=== PATIENT | male | born 1965 | race Hispanic/Latino ===

== ENCOUNTER 2019-09-04 09:43 | Emergency (ER) | payer OTHER, SELFPAY ==
[2019-09-04 10:20] VITALS: BP 139/72; PULSE 88; RESP 16; TEMP 37.3; O2SAT 99
--- NOTE | 2019-09-04 10:52 | ED.URI ---
HPI - URI/Sore Throat General Chief Complaint: Upper Respiratory Infection Stated Complaint: upper respiratiory infection Time Seen by Provider: 09/04/19 10:43 Source: patient and RN notes reviewed Mode of arrival: ambulatory Limitations: no limitations History of Present Illness HPI Narrative: Patient presents today complaining of rhinorrhea, throat itching, and bilateral eye itching and watery drainage that started 3 days ago after working outside. For the first 2 days of symptoms, patient was taking a daily antihistamine, likely Zyrtec, and has used some redeye eyedrops. Reports symptoms have improved and he is feeling much better. He was sent to urgent care today for evaluation, by his employer. He is also been taking Tylenol and drinking hot tea. MD elicited complaint: rhinorrhea and other (Itchy throat and eyes) Related Data Home Medications Medication Instructions Recorded Confirmed No Home Medications 09/04/19 09/04/19 Allergies Allergy/AdvReac Type Severity Reaction Status Date / Time No Known Allergies Allergy Verified 09/04/19 10:20 Review of Systems Review of Systems: Narrative: CONSTITUTIONAL: Denies body aches, fever, chills, or sweats. EYES: Denies visual changes, redness, or discharge. Eye itchiness and watering ENT: Denies congestion, sore throat, or otalgia.+ Rhinorrhea, scratchy throat CARDIOVASCULAR: Denies chest pain, palpitations, or edema. RESPIRATORY: Denies cough or dyspnea. GASTROINTESTINAL: Denies abdominal pain, nausea, vomiting, or diarrhea. GENITOURINARY: Denies dysuria or hematuria. SKIN: Denies rash, itching, or wounds. MUSCULOSKELETAL: Denies back pain, joint pain, or myalgia. NEUROLOGIC: Denies headache, numbness, tingling, or weakness. PSYCH: Denies depression or anxiety. PMFSH Comments At time of signature, I have reviewed and agree with nursing past medical, surgical, social and family history unless otherwise noted. Please see nursing chart for further information. There is no relevant family history pertinent to the presenting complaint Exam Narrative: Exam Narrative: GENERAL: Well-appearing, well-nourished, and in no acute distress. HEAD: Normocephalic, atraumatic. EYES: EOMI. No redness or drainage. Conjunctivae normal. PERRL. ENT: Mucous membranes pink and moist. Nares mildly congested. No rhinorrhea. TMs normal bilaterally. Throat normal with moderate amount of white postnasal drainage in the posterior oropharynx. Uvula midline. NECK: Normal AROM. Supple. No lymphadenopathy. CHEST: No respiratory distress. Clear to auscultation. HEART: Regular rate and rhythm. No murmur appreciated. Normal peripheral pulses. EXTREMITIES: Normal range of motion. No edema. SKIN: Warm, dry, no rash. Capillary refill normal. Normal skin turgor. NEURO: No focal deficits. Alert and oriented x3. Gait steady. PSYCH: Normal affect. No signs of depression or anxiety. Course Vital Signs Vital signs: Vital Signs Temperature 99.1 F 09/04/19 10:20 Pulse Rate 88 09/04/19 10:20 Respiratory Rate 16 09/04/19 10:20 Blood Pressure 139/72 09/04/19 10:20 Pulse Oximetry 99 09/04/19 10:20 Temperature 99.1 F 09/04/19 10:20 Pulse Rate 88 09/04/19 10:20 Respiratory Rate 16 09/04/19 10:20 Blood Pressure 139/72 09/04/19 10:20 Pulse Oximetry 99 09/04/19 10:20 Reviewed. Pt has been instructed to follow up with his PCP regarding his elevated blood pressure today. MDM - URI/Sore Throat Differential Diagnosis Differential diagnosis: Likely upper respiratory infection, sinusitis, viral infection and other (Allergic rhinitis, seasonal allergies) Critical Care Time Critical Care Time Critical Care Time: No Discharge Plan Discharge Clinical Impression: Seasonal allergies Patient Disposition: Home, Self-Care Condition: Stable Instructions: Allergies (ED) Additional Instructions: Joana s?ntomas probablemente se deban a alergias estacionales en el m
== END 2019-09-04 10:57 | disposition home or self-care (01) ==
PROVIDERS: Emergency Provider Nurse Practitioner
DX: J30.2 Other seasonal allergic rhinitis (principal)
CPT/HCPCS: 99201; G0463

== ENCOUNTER 2021-02-25 15:15 | Emergency (ER) | payer OTHER, SELFPAY ==
[2021-02-25 15:32] VITALS: BP 147/73; PULSE 91; RESP 16; TEMP 36.9; O2SAT 99
--- NOTE | 2021-02-25 15:56 | ED.URI ---
HPI - URI/Sore Throat General Chief Complaint: Upper Respiratory Infection Stated Complaint: CONGESTION Time Seen by Provider: 02/25/21 15:55 Source: patient and RN notes reviewed Mode of arrival: ambulatory Limitations: no limitations History of Present Illness HPI Narrative: 55-year-old male presents with concern for rhinorrhea, nasal congestion, sneezing. He denies body aches, chills, fever, sweats. He denies cough or shortness of breath. He reports taking ibuprofen 1 time. He is vaccinated for Covid and flu. MD elicited complaint: rhinorrhea and nasal congestion Related Data Home Medications Medication Instructions Recorded Confirmed fenofibrate micronized mg 02/25/21 lisinopril-hydrochlorothiazide tablet 02/25/21 metformin mg 02/25/21 02/25/21 Allergies Allergy/AdvReac Type Severity Reaction Status Date / Time No Known Allergies Allergy Verified 02/25/21 15:49 Review of Systems Review of Systems: CONSTITUTIONAL: Denies malaise, chills, sweats, or fever. EYES: Denies visual changes, redness, or discharge. ENT: Reports rhinorrhea, congestion, sneezing. Denies sinus pain, otalgia and sore throat. CARDIOVASCULAR: Denies chest pain, palpitations, or edema. RESPIRATORY: Denies cough. Denies dyspnea. GASTROINTESTINAL: Denies abdominal pain, nausea, vomiting, diarrhea SKIN: Denies rash or itching. MUSCULOSKELETAL: Denies myalgia. NEUROLOGIC: Denies headache. All systems reviewed & are unremarkable except as noted in HPI and below PMFSH Comments At time of signature, agree with nursing past medical, surgical, social and family history. There is no relevant family history pertinent to the presenting complaint Exam Narrative: GENERAL: Well-appearing, well-nourished, and in no acute distress. HEAD: Normocephalic EYES: PERRLA, conjunctivae clear ENT: Nares clear, clear discharge. Mucous membranes moist. TM pearly jara with sharp light reflex bilaterally; no tragal tenderness. Oropharynx not erythematous without lesions. Tonsils not enlarged and without exudate, no drooling, no hoarseness, no trismus, uvula midline. NECK: Supple. No lymphadenopathy CHEST: Clear to auscultation, breath sounds equal. No wheezing, rhonchi, rales, or stridor. No respiratory distress, speaks in full sentences. HEART: Regular rate and rhythm. No murmur heard. SKIN: Warm, dry, no rash. NEURO: Alert and oriented x3. PSYCH: Normal mood and affect Course Course Emergency Course: Patient is aware of diagnosis, understands and agrees to treatment plan. Anticipatory guidance given. Patient agrees to follow-up as directed and is aware of reasons to seek care at the emergency department. Portions of this record may have been created with voice recognition software Vital Signs Vital signs: Vital Signs Temperature 98.5 F 02/25/21 15:32 Pulse Rate 91 02/25/21 15:32 Respiratory Rate 16 02/25/21 15:32 Blood Pressure 147/73 H 02/25/21 15:32 Pulse Oximetry 99 02/25/21 15:32 Temperature 98.5 F 02/25/21 15:32 Pulse Rate 91 02/25/21 15:32 Respiratory Rate 16 02/25/21 15:32 Blood Pressure 147/73 H 02/25/21 15:32 Pulse Oximetry 99 02/25/21 15:32 Reviewed. MDM - URI/Sore Throat MDM Narrative Medical decision making narrative: Differential diagnosis considered: Ambriz virus, strep pharyngitis, allergic rhinitis, upper respiratory tract infection, sinusitis, rhinosinusitis, nasopharyngitis. viral pharyngitis, otitis media, otitis externa, pneumonia, bronchitis, viral cough syndrome, viral syndrome, and influenza. Exam findings show no acute concerns or changes; patient is non-toxic appearing and is in no distress. Patient is appropriate for outpatient treatment and follow-up. Critical Care Time Critical Care Time Critical Care Time: No Discharge Plan Discharge Clinical Impression: Upper respiratory infection Qualifiers: URI type: unspecified viral URI Qualified Code(s): J06.9 - Acute upper respiratory infectio
== END 2021-02-25 16:10 | disposition home or self-care (01) ==
PROVIDERS: Emergency Provider Nurse Practitioner
DX: J06.9 Acute upper respiratory infection, unspecified (principal); E78.00 Pure hypercholesterolemia, unspecified; I10 Essential (primary) hypertension; E11.9 Type 2 diabetes mellitus without complications
CPT/HCPCS: 99213; G0463

== ENCOUNTER 2021-05-20 14:44 | Emergency (ER) | payer OTHER, SELFPAY ==
[2021-05-20 14:51] VITALS: BP 139/72; PULSE 95; RESP 18; TEMP 36.7; O2SAT 99
--- NOTE | 2021-05-20 14:59 | ED.MALEGU ---
HPI - Male Genitourinary General Chief complaint: Urogenital-Male Stated complaint: yeast infection Time Seen by Provider: 05/20/21 14:54 Source: patient, RN notes reviewed and old records reviewed Mode of arrival: ambulatory Limitations: no limitations History of Present Illness HPI Narrative: 55-year-old male presents to the [facility] with sores/blisters to the distal aspect of his penis. Patient states that they are very painful. About a month ago he had the foreskin stuck to the penis and was having trouble retracting it. States that it has been going on a couple of weeks may be a month. Had the same thing a couple of times in the past. Patient reports states he has been applying Lotrimin with no relief. Denies any burning with urination. No testicular pain. Denies fevers MD Complaint: other (sores on the penis) Onset (ago): week(s) Duration: constant Related Data Home Medications Medication Instructions Recorded Confirmed fenofibrate micronized 134 mg DIRECTED 02/25/21 05/20/21 lisinopril-hydrochlorothiazide 1 tablet PO DIRECTED 02/25/21 05/20/21 metformin 1,000 mg DIRECTED 02/25/21 05/20/21 Allergies Allergy/AdvReac Type Severity Reaction Status Date / Time No Known Allergies Allergy Verified 02/25/21 15:49 Review of Systems Review of Systems: All systems reviewed & are unremarkable except as noted in HPI and below Constitutional: Constitutional: Reports no additional constitutional complaints, Denies chills and Denies fever(s) Eyes: Eyes: Reports no additional eye complaints ENT: Reports system reviewed and no additional complaints, except as documented Cardiovascular: Cardiovascular: Reports no additional cardiovascular complaints Respiratory: Respiratory: Reports no additional respiratory complaints Gastrointestinal: Gastrointestinal: Reports no additional gastrointestinal complaints Genitourinary: Genitourinary: Reports as per HPI and Reports genital lesions Musculoskeletal: Musculoskeletal: Reports no additional musculoskeletal complaints Integumentary/Breasts: Skin/Breast: Reports system reviewed and no additional complaints, except as docu Neurologic: Reports system reviewed and no additional complaints, except as documented Psychiatric: Psychiatric: Reports no additional psychiatric complaints Allergic/Immunologic: Allergic/Immunologic: Reports no additional allergic/immunologic complaints [facility] Past Medical History Medical History (Updated 05/20/21 @ 15:22 by Ruth Tamayo APRN) Diabetes High cholesterol Social History Social History (Updated 05/20/21 @ 15:09 by Ruth Tamayo APRN) Living arrangements: with family Gender identity (if verbalized by the patient): Male Comments At the time of my signature, I reviewed and agree with the nursing past medical, surgical, social, and family history. There is no relevant family history pertinent to the patient complaint. Exam Const: General: healthy appearing, no acute distress and alert Nutritional Appearance: well nourished Orientation/consciousness: patient oriented x3 Limitations: no limitations HENMT: Head: normal to inspection Ears: external ears normal General nose exam: Normal external nose present Eyes: Pupils: Equal, round and reactive pupils present Neck: Neck: normal visual inspection, no lymphadenopathy and no meningeal signs Chest: Chest palpation & inspection: normal inspection of the chest Resp: Effort & Inspection: normal respiratory effort and no use of accessory muscles Auscultation: clear to auscultation bilaterally, no crackles, no rales, no rhonchi and no wheezes Cardio: Rate: regular rate Rhythm: regular rhythm : Male General Exam: No ecchymosis and No edema Penis: Yes vesicles (2 noted to the left distal aspect of penis just below for the meatus) Meatus: meatus normal Scrotum: scrotum normal Testes: Testes normal Other: Chaperoned by Nadine DRAPER Back/Spine/Pelvis: Back: no CV
== END 2021-05-20 15:30 | disposition home or self-care (01) ==
PROVIDERS: Emergency Provider Nurse Practitioner
DX: B00.9 Herpesviral infection, unspecified (principal); E11.9 Type 2 diabetes mellitus without complications; E78.00 Pure hypercholesterolemia, unspecified
CPT/HCPCS: 87255; 99213; G0463

== ENCOUNTER 2022-02-03 08:26 | Emergency (ER) | payer OTHER, SELFPAY ==
--- NOTE | 2022-02-03 08:29 | ED.URI ---
HPI - URI/Sore Throat General Chief Complaint: Upper Respiratory Infection Stated Complaint: Sinus Time Seen by Provider: 02/03/22 08:31 Source: patient, RN notes reviewed and old records reviewed Mode of arrival: ambulatory Limitations: no limitations History of Present Illness HPI Narrative: 56-year-old male presents to the [facility] with complaints of sinus congestion for 2 days. Took 1 allergy medication yesterday. No other treatment prior to arrival. Reports frontal headache. Denies fevers, chest pain, abdominal pain. Denies cough. Related Data Home Medications Medication Instructions Recorded Confirmed fenofibrate micronized 134 mg 134 mg DIRECTED 02/25/21 02/03/22 capsule lisinopril 20 1 tablet PO DIRECTED 02/25/21 02/03/22 mg-hydrochlorothiazide 25 mg tablet metformin 1,000 mg tablet 1,000 mg DIRECTED 02/25/21 02/03/22 cholecalciferol (vitamin D3) 25 25 mcg PO DAILY 02/03/22 02/03/22 mcg (1,000 unit) tablet omega-3 acid ethyl esters 1 gram 2 cap PO BID 02/03/22 02/03/22 capsule sitagliptin phosphate 100 mg 100 mg PO DAILY 02/03/22 02/03/22 tablet (Januvia) Allergies Allergy/AdvReac Type Severity Reaction Status Date / Time No Known Allergies Allergy Verified 02/03/22 08:34 Review of Systems Review of Systems: All systems reviewed & are unremarkable except as noted in HPI and below Constitutional: Constitutional: Reports no additional constitutional complaints, Denies chills and Denies fever(s) Eyes: Eyes: Reports no additional eye complaints ENT: Reports as per HPI, Reports nasal congestion and Denies sore throat Cardiovascular: Cardiovascular: Reports no additional cardiovascular complaints Respiratory: Respiratory: Reports no additional respiratory complaints Gastrointestinal: Gastrointestinal: Reports no additional gastrointestinal complaints Musculoskeletal: Musculoskeletal: Reports no additional musculoskeletal complaints Integumentary/Breasts: Skin/Breast: Reports system reviewed and no additional complaints, except as docu Neurologic: Reports system reviewed and no additional complaints, except as documented Psychiatric: Psychiatric: Reports no additional psychiatric complaints Allergic/Immunologic: Allergic/Immunologic: Reports no additional allergic/immunologic complaints PMFSH Past Medical History Medical History (Updated 02/03/22 @ 09:22 by Ruth Tamayo APRN) Diabetes High cholesterol Social History Social History Gender identity (if verbalized by the patient): Male Comments At the time of my signature, I reviewed and agree with the nursing past medical, surgical, social, and family history. There is no relevant family history pertinent to the patient complaint. Exam Const: General: healthy appearing, comfortable, no acute distress, well developed, alert and well nourished Nutritional Appearance: well nourished Orientation/consciousness: patient oriented x3 Limitations: no limitations HENMT: Head: normal to inspection Ears: external ears normal, TM's normal bilaterally and EAC's normal Face/Nose/Sinus: Normal external nose present and Normal nares present Face and sinus: sinus tenderness frontal and maxillary Mouth: Yes Normal oral and palatal mucosa present, Yes lip normal and Yes moist mucous membranes Throat: posterior oropharynx normal and uvula midline Eyes: General: appearance normal, both eyes and all related structures Conjunctivae: conjunctivae normal Pupils: Equal, round and reactive pupils present Neck: Neck: normal visual inspection, full ROM, no lymphadenopathy and no meningeal signs Chest: Chest palpation & inspection: normal inspection of the chest Resp: Effort & Inspection: normal respiratory effort and no use of accessory muscles Auscultation: clear to auscultation bilaterally, no crackles, no rales, no rhonchi and no wheezes Cardio: Rate: regular rate Rhythm:
[2022-02-03 08:34] VITALS: BP 146/77; PULSE 66; RESP 16; TEMP 36.1; O2SAT 100
[2022-02-03 08:46] VITALS: BP 146/77; PULSE 66; RESP 16; TEMP 36.1; O2SAT 100
== END 2022-02-03 09:18 | disposition home or self-care (01) ==
PROVIDERS: Emergency Provider Nurse Practitioner
DX: J32.9 Chronic sinusitis, unspecified (principal); E11.9 Type 2 diabetes mellitus without complications; E78.00 Pure hypercholesterolemia, unspecified
CPT/HCPCS: 87804; 99213; G0463

== ENCOUNTER 2022-06-01 15:14 | Emergency (ER) | payer OTHER, SELFPAY ==
--- NOTE | 2022-06-01 15:22 | ED.URI ---
HPI - URI/Sore Throat General Chief Complaint: Upper Respiratory Infection Stated Complaint: Sinus Time Seen by Provider: 06/01/22 15:32 Source: patient, RN notes reviewed and old records reviewed Mode of arrival: ambulatory Limitations: no limitations History of Present Illness HPI Narrative: 56-year-old male presents to the [facility] with sinus pressure, ear itching for 5 days. Patient reports that it started as a sore throat 5 days ago. Took NyQuil which made the throat better. Onset (ago): day(s) (5) Related Data Home Medications Medication Instructions Recorded Confirmed fenofibrate micronized 134 mg 134 mg DIRECTED 02/25/21 02/03/22 capsule lisinopril 20 1 tablet PO DIRECTED 02/25/21 02/03/22 mg-hydrochlorothiazide 25 mg tablet metformin 1,000 mg tablet 1,000 mg DIRECTED 02/25/21 02/03/22 cholecalciferol (vitamin D3) 25 25 mcg PO DAILY 02/03/22 02/03/22 mcg (1,000 unit) tablet omega-3 acid ethyl esters 1 gram 2 cap PO BID 02/03/22 02/03/22 capsule sitagliptin phosphate 100 mg 100 mg PO DAILY 02/03/22 02/03/22 tablet (Januvia) Allergies Allergy/AdvReac Type Severity Reaction Status Date / Time No Known Allergies Allergy Verified 06/01/22 15:30 Review of Systems Review of Systems: All systems reviewed & are unremarkable except as noted in HPI and below Constitutional: Constitutional: Reports no additional constitutional complaints Eyes: Eyes: Reports no additional eye complaints ENT: Reports as per HPI, Reports nasal congestion, Reports sinus pain and Reports sinus pressure Cardiovascular: Cardiovascular: Reports no additional cardiovascular complaints, Denies chest pain and Denies dyspnea Respiratory: Respiratory: Reports no additional respiratory complaints, Denies chest congestion, Denies cough and Denies dyspnea Gastrointestinal: Gastrointestinal: Reports no additional gastrointestinal complaints, Denies abdominal pain, Denies nausea and Denies vomiting Musculoskeletal: Musculoskeletal: Reports no additional musculoskeletal complaints Integumentary/Breasts: Skin/Breast: Reports system reviewed and no additional complaints, except as docu Neurologic: Reports system reviewed and no additional complaints, except as documented Psychiatric: Psychiatric: Reports no additional psychiatric complaints Allergic/Immunologic: Allergic/Immunologic: Reports no additional allergic/immunologic complaints PMFSH Past Medical History Medical History Diabetes High cholesterol Social History Social History Living arrangements: with family Gender identity (if verbalized by the patient): Male Comments At the time of my signature, I reviewed and agree with the nursing past medical, surgical, social, and family history. There is no relevant family history pertinent to the patient complaint. Exam Const: General: cooperative, healthy appearing, comfortable, no acute distress, well developed, alert and well nourished Nutritional Appearance: well nourished Orientation/consciousness: patient oriented x3 Limitations: no limitations HENMT: Head: normal to inspection Ears: hearing grossly normal bilaterally, external ears normal, EAC's normal and TM abnormal with fluid behind the TM bilateral; not erythematous Face/Nose/Sinus: Normal external nose present, Normal nares present, Normal nasal mucous membranes and turbinates present and normal facial exam Face and sinus: normal facial exam Mouth: Yes Normal oral and palatal mucosa present, Yes lip normal and Yes moist mucous membranes Throat: posterior oropharynx normal, uvula midline and postnasal drainage Eyes: General: appearance normal, both eyes and all related structures Alignment and Position: alignment normal Periorbital: periorbital findings normal Conjunctivae: conjunctivae normal Pupils: Equal, round and reactive pupils pre
[2022-06-01 15:25] VITALS: BP 142/76; PULSE 99; RESP 20; TEMP 36.6; O2SAT 99
== END 2022-06-01 15:46 | disposition home or self-care (01) ==
PROVIDERS: Emergency Provider Nurse Practitioner
DX: H65.02 Acute serous otitis media, left ear (principal); J06.9 Acute upper respiratory infection, unspecified; E11.9 Type 2 diabetes mellitus without complications
CPT/HCPCS: 99213; G0463

== ENCOUNTER 2023-03-19 14:44 | Emergency (ER) | payer OTHER, SELFPAY ==
[2023-03-19 14:58] VITALS: BP 152/86; PULSE 88; RESP 16; TEMP 36.6; O2SAT 98
--- NOTE | 2023-03-19 15:18 | ED.URI ---
HPI - URI/Sore Throat General Chief Complaint: Upper Respiratory Infection Stated Complaint: Sinus Time Seen by Provider: 03/19/23 15:10 Source: patient and RN notes reviewed Mode of arrival: ambulatory Limitations: no limitations History of Present Illness HPI Narrative: Patient presents today complaining of nasal congestion, sinus pressure. Symptoms began over 1 week ago, improved, then returned again 5 days ago and have worsened since then. He has tried aspirin and nasal spray with mild relief. Denies cough, fever, sore throat. Related Data Home Medications Medication Instructions Recorded Confirmed lisinopril 20 1 tablet PO DIRECTED 02/25/21 03/19/23 mg-hydrochlorothiazide 25 mg tablet metformin 1,000 mg tablet 1,000 mg DIRECTED 02/25/21 03/19/23 cholecalciferol (vitamin D3) 25 25 mcg PO DAILY 02/03/22 03/19/23 mcg (1,000 unit) tablet omega-3 acid ethyl esters 1 gram 2 cap PO BID 02/03/22 03/19/23 capsule sitagliptin phosphate 100 mg 100 mg PO DAILY 02/03/22 03/19/23 tablet (Januvia) Allergies Allergy/AdvReac Type Severity Reaction Status Date / Time No Known Allergies Allergy Verified 03/19/23 15:16 Review of Systems Review of Systems: CONSTITUTIONAL: Denies body aches, fever, chills, or sweats. EYES: Denies visual changes, redness, or discharge. ENT: Denies rhinorrhea, sore throat, or otalgia.+ congestion, sinus pressure CARDIOVASCULAR: Denies chest pain, palpitations, or edema. RESPIRATORY: Denies cough or dyspnea. GASTROINTESTINAL: Denies abdominal pain, nausea, vomiting, or diarrhea. GENITOURINARY: Denies dysuria or hematuria. SKIN: Denies rash, itching, or wounds. MUSCULOSKELETAL: Denies back pain, joint pain, or myalgia. NEUROLOGIC: Denies headache, numbness, tingling, or weakness. PSYCH: Denies depression or anxiety. [facility] Past Medical History Medical History Diabetes High cholesterol Social History Social History Living arrangements: with family Gender identity (if verbalized by the patient): Male Comments At time of signature, I have reviewed and agree with nursing past medical, surgical, social and family history unless otherwise noted. Please see nursing chart for further information. There is no relevant family history pertinent to the presenting complaint Exam Narrative: GENERAL: Well-appearing, well-nourished, and in no acute distress. HEAD: Normocephalic, atraumatic. EYES: EOMI. No redness or drainage. Conjunctivae normal. ENT: Mucous membranes pink and moist. Nares congested. Bilateral nasal turbinates are erythematous and edematous. Bilateral maxillary and ethmoid/sphenoid sinus tenderness. No frontal sinus tenderness. TMs normal bilaterally. Throat normal. Uvula midline. NECK: Normal AROM. Supple. No lymphadenopathy. CHEST: No respiratory distress. Clear to auscultation. HEART: Regular rate and rhythm. No murmur appreciated. EXTREMITIES: Normal range of motion. No edema. SKIN: Warm, dry, no rash. Capillary refill normal. Normal skin turgor. NEURO: No focal deficits. Alert and oriented x3. Gait steady. PSYCH: Normal affect. No signs of depression or anxiety. Course Course Level of Care: Express Care Visit Vital Signs Vital signs: Vital Signs Temperature 97.8 F 03/19/23 14:58 Pulse Rate 88 03/19/23 14:58 Respiratory Rate 16 03/19/23 14:58 Blood Pressure 152/86 H 03/19/23 14:58 Pulse Oximetry 98 03/19/23 14:58 Oxygen Delivery Room Air 03/19/23 14:58 Temperature 97.8 F 03/19/23 14:58 Pulse Rate 88 03/19/23 14:58 Respiratory Rate 16 03/19/23 14:58 Blood Pressure 152/86 H 03/19/23 14:58 Pulse Oximetry 98 03/19/23 14:58 Oxygen Delivery Room Air 03/19/23 14:58 Reviewed MDM - URI/Sore Throat MDM Narrative Medical decision making narrative: Patient will be treate
== END 2023-03-19 15:25 | disposition home or self-care (01) ==
PROVIDERS: Emergency Provider Nurse Practitioner; PCP Physician Assistant
DX: J32.9 Chronic sinusitis, unspecified (principal); E11.9 Type 2 diabetes mellitus without complications; Z79.899 Other long term (current) drug therapy; Z79.84 Long term (current) use of oral hypoglycemic drugs
CPT/HCPCS: 99213; G0463

== ENCOUNTER 2024-09-29 12:52 | Emergency (ER) | payer OTHER, SELFPAY ==
[2024-09-29 12:59] VITALS: BP 140/69; PULSE 83; RESP 18; TEMP 36.9; O2SAT 98
--- NOTE | 2024-09-29 13:17 | ED.GENADULT ---
HPI - General Adult General Chief complaint: Upper Respiratory Infection Stated complaint: Sinus Source: patient Mode of arrival: ambulatory Limitations: no limitations History of Present Illness HPI narrative: Patient presents for evaluation of allergy symptoms for last 3 days. Symptoms include itching of the eyes and ears, tearing from the eyes, nasal congestion and rhinorrhea. No fever, chills, cough, shortness of breath, colored nasal discharge, nausea, vomiting or diarrhea. He took aspirin for his symptoms. No recent sick contacts to his knowledge. Related Data Home Medications ?Medication ?Instructions ?Recorded ?Confirmed ?Last Taken ?Type lisinopril 20 1 tablet PO DIRECTED 02/25/21 03/19/23 02/25/21 History mg-hydrochlorothiazide 25 mg tablet metformin 1,000 mg tablet 1,000 mg DIRECTED 02/25/21 03/19/23 02/25/21 History cholecalciferol (vitamin D3) 25 25 mcg PO DAILY 02/03/22 03/19/23 Unknown History mcg (1,000 unit) tablet omega-3 acid ethyl esters 1 gram 2 cap PO BID 02/03/22 03/19/23 Unknown History capsule sitagliptin phosphate 100 mg 100 mg PO DAILY 02/03/22 03/19/23 Unknown History tablet (Januvia) Allergies Allergy/AdvReac Type Severity Reaction Status Date / Time No Known Allergies Allergy Verified 09/29/24 12:53 Review of Systems Review of Systems: CONSTITUTIONAL: Denies fever, chills, or sweats. EYES: Denies visual changes, redness, or discharge. ENT: reports itching of the eyes and ears, nasal congestion, rhinorrhea CARDIOVASCULAR: Denies chest pain, palpitations, or edema. RESPIRATORY: Denies cough or dyspnea. GASTROINTESTINAL: Denies abdominal pain, nausea, vomiting, or diarrhea. GENITOURINARY: Denies dysuria or hematuria. SKIN: Denies rash or itching. MUSCULOSKELETAL: Denies back pain, joint pain, or myalgia. NEUROLOGIC: Denies headache, numbness, dizziness, or weakness. PSYCHIATRIC: Denies anxiety or depression. [facility] Past Medical History Medical History High cholesterol Diabetes Surgical History Surgical History No pertinent past surgical history Family History Family History Mother Family history non-contributory Social History Social History Living arrangements: with family Gender identity (if verbalized by the patient): Male Spiritual care concerns: No Exam Narrative: GENERAL: Well-appearing, well-nourished, and in no acute distress. HEAD: Normocephalic, atraumatic. EYES: PERRLA and EOMI. ENT: Nares clear, no rhinorrhea or epistaxis. Mucous membranes moist. Oropharynx without tonsillar hypertrophy exudate or other lesions. Bilateral TMs pearly jara nonbulging NECK: Supple. No adenopathy or masses. No carotid bruits or JVD CHEST: Clear to auscultation. No respiratory distress. No wheezes rales or rhonchi HEART: Regular rate and rhythm. No murmur heard. Normal peripheral pulses. ABDOMEN: Soft, nontender, nondistended, normal active bowel sounds. EXTREMITIES: Normal range of motion. No edema. SKIN: Warm, dry, no rash. NEURO: No focal deficits. Alert and oriented x3. PSYCH: Normal mood and affect. Course Course Emergency Course: This is a 58-year-old male who presented for evaluation of allergy symptoms. His exam is not consistent with an infectious process. Recommend flonase and cetirizine. Follow up with primary care provider. Go to the ER for worsening symptoms. Patient in agreement with plan of care Level of Care: Express Care Visit Vital Signs Vital signs: Vital Signs Temperature 36.9 C 09/29/24 12:59 Pulse Rate 83 09/29/24 12:59 Respiratory Rate 18 09/29/24 12:59 Blood Pressure 140/69 09/29/24 12:59 Pulse Oximetry 98 09/29/24 12:59 Oxygen Delivery Room Air 09/29/24 12:59 Temperature 36.9 C 09/29/24 12:59 Pulse Rate 83 09/29/24 12:59 Respiratory Rate 18 09/29/24 12:59 Blood Pressure 140/69 09/29/24 12:59 Pulse Oximetry 98 09/29/24 12:59 Oxygen Delivery Room Air 09/29/24 12:59 Medical Decision Making Vital Signs Vital Signs: Vital Signs Temperature 36.9 C 09/29/24 12:59 Pulse Rate 83 09/29/24 12:59 Respiratory Rate 18 09/29/24 12:59 Blood Pressure 140/69 09/29/24 12:59 Pulse Oximetry 98 09/29/24 12:59 Oxygen Delivery Room Air 09/29/24 12:59 Temperature 36.9 C 09/29/24 12:59 Pulse Rate 83 09/29/24 12:59 Respiratory Rate 18 09/29/24 12:59 Blood Pressure 140/69 09/29/24 12:59 Pulse Oximetry 98 09/29/24 12:59 Oxygen Delivery Room Air 09/29/24 12:59 Discharge Plan Discharge Clinical Impression: Allergic rhinitis Patient Disposition: Home Condition: Stable Instructions: Antibiotic Form, Allergies (ED) Additional Instructions: YOU MAY TAKE CETIRIZINE AND FLONASE FOR YOUR SYMPTOMS MAKE SURE YOU STAY WELL HYDRATED Patient Language: [place] Prescriptions: New cetirizine 10 mg tablet 10 mg PO DAILY PRN (Reason: allergy symptoms) Qty: 15 0RF fluticasone propionate [Flonase Allergy Relief] 50 mcg/actuation spray,suspension 2 spray intranasal DAILY Qty: 16 0RF Rx Instructions: administer into each nostril No Action metformin 1,000 mg tablet 1,000 mg DIRECTED lisinopril-hydrochlorothiazide 20-25 mg tablet 1 tablet PO DIRECTED omega-3 acid ethyl esters 1 gram capsule 2 cap PO BID cholecalciferol (vitamin D3) 25 mcg (1,000 unit) tablet 25 mcg PO DAILY Januvia 100 mg tablet 100 mg PO DAILY fluticasone propionate [Flonase Allergy Relief] 50 mcg/actuation spray,suspension 2 spray intranasal DAILY Qty: 16 0RF Rx Instructions: administer into each nostril fluticasone propionate [Flonase Allergy Relief] 50 mcg/actuation spray,suspension 2 spray intranasal DAILY Qty: 16 0RF Rx Instructions: administer into each nostril Follow-up/Referrals: Heaven,KELLY Doran [Primary Care Provider] - Time of Disposition: 13:13
== END 2024-09-29 13:18 | disposition home or self-care (01) ==
PROVIDERS: Emergency Provider Nurse Practitioner; PCP Physician Assistant
DX: J30.9 Allergic rhinitis, unspecified (principal); E11.9 Type 2 diabetes mellitus without complications; Z79.84 Long term (current) use of oral hypoglycemic drugs; E78.00 Pure hypercholesterolemia, unspecified
CPT/HCPCS: 99213; G0463